=== PATIENT | female | born 1985 | race American Indian/Alaskan Native ===

== ENCOUNTER 2018-11-29 09:44 | Day surgery (SDC) | payer MEDICAID, OTHER ==
[~2018-11-29 09:44] MED LIST: NACL 0.9% 1000 ML 1,000 ML IV SCH
--- NOTE | 2018-11-29 10:49 | Anesthesia Consultation ---
Anesthesia Consult and Med Hx Date of service: 11/29/18 - Airway Anesthetic Teeth Evaluation: Good ROM Head & Neck: Adequate Mental/Hyoid Distance: Adequate Mallampati Class: Class III Intubation Access Assessment: Possibly Difficult - Pre-Operative Health Status ASA Pre-Surgery Classification: ASA2 Proposed Anesthetic Plan: MAC - Pulmonary Hx Sleep Apnea: No (snoring) - Gastrointestinal Hx Ulcer: Yes (PUD) Hx Gastroesophageal Reflux Disease: Yes - Other Systems Hx Obesity: Yes (BMI 38.5)
--- NOTE | 2018-11-29 10:49 | Anesthesia Day of Surgery ---
Anesthesia Day of Surgery - Day of Surgery Patient Examined: Yes Patient H&P Reviewed: Yes Patient is NPO: Yes
[2018-11-29] MEDS ORDERED: DIPRIVAN 10 MG/ML IV ONE ×2 (11:24)
--- NOTE | 2018-11-29 11:53 | Procedure Note ---
Date of procedure: 11/29/18 Pre-op diagnosis: GERD/ Epigastric Pain Post-op diagnosis: other (Moderate,Distal Erosive Esophagitis/ Gastritis/Moderate,Hiatal Hernia/R/O Celiac Disease) Procedure: EGD with biopsy Anesthesia: MAC Surgeon: TOMASZ MELGOZA Estimated blood loss: minimal Pathology: list Specimen disposition: to lab Condition: stable Disposition: same day (Treat with PPI and advice about lifestyle changes; avoid aspirin and NSAID for 5 days and follow up in 1 to 2 weeks ([phone]).)
[2018-11-29 12:39] VITALS: BP 101/82
--- NOTE | 2018-11-29 14:07 | Operative Report ---
PROCEDURE: Esophagogastroduodenoscopy with biopsy. INDICATIONS: Thank you for the kind referral. This is a 33-year-old -[place] female who has been having some dyspeptic symptoms and epigastric pain along with some GERD symptoms. EGD was done to assess for any associated upper GI pathology. DESCRIPTION OF PROCEDURE: The procedure was done after getting informed consent with MAC anesthesia and the procedure was done with the assistance of anesthesia as well as the presence and assistance of RN, Lindsey Rivas as well as a moira Santos. Instrument was passed through the hypopharynx into the esophagus, which showed moderate distal erosive esophagitis. Biopsy was done from the distal esophagus. Stomach showed a moderate hiatal hernia on the retroverted view as well as presence of antral gastritis. Biopsy was done from the gastric antrum, body and angular incisura to rule out for H. pylori. Additional biopsy was done from the distal esophagus to assess for the severity of the esophagitis. The pylorus was patent. The duodenum in the first and second portion appeared normal. Biopsy was done from the second part to rule out for possible celiac disease. There was minimal bleeding associated with the biopsies and no complications associated with the procedure. ASSESSMENT: Gastroesophageal reflux disease symptoms, epigastric pain. No peptic ulcer disease noted, moderate distal erosive esophagitis, moderate hiatal hernia, gastritis, rule out celiac disease. The patient will be asked to avoid aspirin and aspirin-related products for the next few days, treated with PPI. Advised about lifestyle changes because of the presence of the hiatal hernia and to follow up in the office in 1-2 weeks' time. Again, there was minimal bleeding and no complications associated with the procedure. Procedure was done in the presence of MANNY, Lindsey Rivas and moira Santos. Thank you for the kind referral. JOB# [id number] SHIVANI/COLTON
== END 2018-11-29 09:45 | disposition home or self-care (01) ==
LOC: GIO 09:44
DX: K21.0 Gastro-esophageal reflux disease with esophagitis (principal); K44.9 Diaphragmatic hernia without obstruction or gangrene; K29.70 Gastritis, unspecified, without bleeding; K31.89 Other diseases of stomach and duodenum; K22.8 Other specified diseases of esophagus; K30 Functional dyspepsia; M19.90 Unspecified osteoarthritis, unspecified site; F32.9 Major depressive disorder, single episode, unspecified; E66.9 Obesity, unspecified; Z68.38 Body mass index [BMI] 38.0-38.9, adult; Z98.890 Other specified postprocedural states; Z88.6 Allergy status to analgesic agent; Z79.899 Other long term (current) drug therapy
CPT/HCPCS: 43239; 81025; 88305; 88312; 88342; J2704; J7030